=== PATIENT | female | born 1955 | race Caucasian/White ===

== ENCOUNTER 2017-01-18 10:32 | Emergency (ER) | payer OTHER, BC ==
[2017-01-18 10:47] VITALS: BP 109/70
[2017-01-18] MEDS ORDERED: Acetaminophen/HYDROcodone 325-5 MG Tab PO ONE (10:52)
[2017-01-18] MEDS ORDERED: HYDROmorphone 1 MG/ML Syringe IM ONE (11:18)
--- NOTE | 2017-01-24 08:50 | ER ---
Date of Service: 01/18/2017 SUBJECTIVE: The patient presents to the emergency room with complaints of chest pain for approximately 1 day. States that the pain began in her mid back region and now radiates into her mid chest. She states that she has not been diaphoretic and has not been experiencing any nausea or vomiting. She states that she has no history of chest pain, has never experienced a discomfort like this in the past. PAST MEDICAL HISTORY: 1. Depression. 2. Sleep disorder. MEDICATIONS: Trazodone. ALLERGIES: NKDA. REVIEW OF SYSTEMS: General: No fever or chills. HEENT: No sore throat, rhinorrhea, congestion. Respiratory: No shortness of breath. Cardiac: Please see history of present illness. GI: No nausea, vomiting, or diarrhea. No melena, hematochezia, or hematemesis. : Denies any dysuria. Musculoskeletal: No myalgias or arthralgias. Neurologic: No fainting, blackouts, lightheadedness. PHYSICAL EXAMINATION: General: This is a 61-year-old female patient, in no acute distress. Vital Signs: Heart rate is 59, blood pressure is 109/70, respiratory rate is 14, O2 saturations 99%, temperature is 36.3. Skin: Warm, pink, and dry. HEENT: Head is normocephalic, atraumatic. Eyes, PERRLA. Extraocular movements are intact. Ears, TMs are clear. Mouth, oral mucosa is moist. Lungs: Clear to auscultation. Heart: Regular rate and rhythm. Abdomen: Soft, nontender. There is no hepatosplenomegaly noted. There is no masses noted. Extremities: Without edema. Neurologic: The patient is alert, oriented, and answers all questions appropriately. Her speech is fluent. Her gait is within normal limits. DICTATION ENDS HERE MWK: 01/23/2017 17:38:20 MODL: 01/23/2017 21:32:17 /[id number]
--- NOTE | 2017-02-02 08:01 | ER ---
Date of Service: 01/18/2017 ADDENDUM: DIAGNOSTIC DATA: Cervical spine x-rays were obtained, but the patient refused them. EMERGENCY ROOM COURSE: The patient was going to be given an injection of hydromorphone 1 mg IM, but refused. She was also going to be given an injection of Norflex, but the patient refused this as well and also refused oral hydrocodone as well. ASSESSMENT: Torticollis. PLAN: The patient will be discharged. She was given information on some exercises that she can do with help with the discomfort. I did get her a referral to physical therapy. Tylenol and ibuprofen for discomfort. Return to the emergency room if she develops any numbness or tingling in her extremities, difficulties with breathing or other worrisome signs or symptoms. MWK: 02/01/2017 16:45:18 MODL: 02/02/2017 00:37:48 /[id number]
== END 2017-01-18 12:05 | disposition home or self-care (01) ==
LOC: VM.ED 10:32
DX: M43.6 Torticollis (principal)
CPT/HCPCS: 96372; 99284; J1170; J2360; 99283-GF